=== PATIENT | male | born 1985 | race Caucasian/White ===

== ENCOUNTER 2019-06-22 16:05 | Emergency (ER) | payer OTHER ==
[~2019-06-22] VITALS: Ht 177.8 cm; Wt 77.1 kg
[2019-06-22] MEDS ORDERED: ZYPREXA5 MG PO (18:16)
== END 2019-06-22 18:37 | disposition home or self-care (01) ==
LOC: ED 16:05
DX: R45.6 Violent behavior (principal)
CPT/HCPCS: 99284

== ENCOUNTER 2019-07-29 15:14 | Emergency (ER) | payer OTHER ==
[~2019-07-29] VITALS: Ht 177.8 cm; Wt 77.1 kg
--- OUTSIDE RECORDS SUMMARY | ~2019-07-29 | XMS | Clinical Summary ---
Demographics + + + | Address | [address] | | | [place] [address] | + + + | Home Phone | | + + + | Preferred Language | Unknown | + + + | Marital Status | Single | + + + | Adventist Affiliation | Unknown | + + + | Race | Unknown | + + + | Ethnic Group | Unknown | + + + Author + + + | Author | [facility] (Historical as of | | | 10-21-18) | + + + | Organization | [email or web address] (Historical as of | | | 10-21-18) | + + + | Address | Unknown | + + + | Phone | Unavailable | + + + Support + + +---------+ + | Name | Relationship | Address | Phone | + + +---------+ + | Jessica Mejias | ECON | Unknown | | + + +---------+ + Care Team Providers + +------+ + | Care Stock Analyst Name | Role | Phone | + +------+ + | Toshia Wilder PA-C | PP | | + +------+ + Allergies No Known Allergies Current Medications + + +-------+---------+------+------+-------+ | Prescription | Sig. | Disp. | Refills | Star | End | Statu | | | | | | t | Date | s | | | | | | Date | | | + + +-------+---------+------+------+-------+ | sertraline | Take 25 mg by mouth | | | | | Activ | | (ZOLOFT) 25 MG | daily. | | | | | e | | tablet | | | | | | | + + +-------+---------+------+------+-------+ | cetirizine | Take 10 mg by mouth | | | | | Activ | | (ZYRTEC) 10 MG | daily. | | | | | e | | tablet | | | | | | | + + +-------+---------+------+------+-------+ Active Problems + + + | Problem | Noted Date | + + + | Memory loss | 12/21/2016 | + + + | Migraine without aura and without status migrainosus, not | 12/21/2016 | | intractable | | + + + | Difficulty concentrating | 12/21/2016 | + + + Family History + + +------+ + | Medical History | Relation | Name | Comments | + + +------+ + | Cancer | Father | | | + + +------+ + | Alcohol abuse | Maternal | | | | | Grandfath | | | | | er | | | + + +------+ + | Asthma | Mother | | | + + +------+ + | Diabetes type I | Mother | | | + + +------+ + + +------+ + + | Relation | Name | Status | Comments | + +------+ + + | Father | | Alive | | + +------+ + + | Maternal Grandfather | | | | + +------+ + + | Mother | | Alive | | + +------+ + + Social History + +-------+ +--------+ + | Tobacco Use | Types | Packs/Day | Years | Date | | | | | Used | | + +-------+ +--------+ + | Former Smoker | | | | Quit: 12/21/2014 | + +-------+ +--------+ + + +---+---+ + | Smokeless Tobacco: | | | Quit: | | Former User | | | 06/06/19 | | | | | 18 | + +---+---+ + + + | Tobacco Cessation: Counseling Given: No | + + + + +---------+ + | Alcohol Use | Drinks/We | oz/Week | Comments | | | ek | | | + + +---------+ + | No | | | | + + +---------+ + + + + | Sex Assigned at | Date Recorded | | | | + + + | Not on file | | + + + Last Filed Vital Signs + + + + | Vital Sign | Reading | Time Taken | + + + + | Blood Pressure | 120/72 | 07/06/2017 10:10 AM PDT | + + + + | Pulse | 88 | 07/06/2017 10:10 AM PDT | + + + + | Temperature | - | - | + + + + | Respiratory Rate | - | - | + + + + | Oxygen Saturation | 100% | 07/06/2017 10:10 AM PDT | + + + + | Inhaled Oxygen | - | - | | Concentration | | | + + + + | Weight | 71.7 kg (158 lb) | 07/06/2017 10:10 AM PDT | + + + + | Height | 177.8 cm (5' 10") | 07/06/2017 10:10 AM PDT | + + + + | Body Mass Index | 22.67 | 07/06/2017 10:10 AM PDT | + + + + Plan of Treatment + + + + + | Health Maintenance | Due Date | Last Done | Comments | + + + + + | Vaccine: | | | | | Dtap/Tdap/Td (1 - | 6 | | | | Tdap) | | | | + + + + + | Vaccine: Influenza | | | | | (Season Ended) | 0 | | | + + + + + Results Not on filefrom Last 3 Months Insurance + +--------+ +------+-------+ + | Payer | Benefi | Subscriber | Type | Phone | Address | | | t Plan | ID | | | | | | / | | | | | | | Group | | | | | + +--------+ +------+-------+ + | MEDICAID | [place] | [id number] | | | [address] | | | N | | | | [place] | | | [place] | | | | [phone] | | | [employer] | | | | | + +--------+ +------+-------+ + + +--------+ +--------+ + + | Guarantor Name | Accoun | Relation to | Date | Phone | Billing Address | | | t Type | Patient | of | | | | | | | | | | + +--------+ +--------+ + + | IZABEL WILLIAM | Person | Self | [birth year] 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
--- OUTSIDE RECORDS SUMMARY | ~2019-07-29 | XMS | Encounter Summary ---
Demographics + + + | Address | [address] | | | [place] [address] | + + + | Home Phone | | + + + | Preferred Language | Unknown | + + + | Marital Status | Single | + + + | Restorationism Affiliation | Unknown | + + + | Race | Unknown | + + + | Ethnic Group | Unknown | + + + Author + + + | Author | [facility] | | | and [place] | + + + | Organization | [facility] | | | and [place] | + + + | Address | Unknown | + + + | Phone | Unavailable | + + + Support + + +---------+ + | Name | Relationship | Address | Phone | + + +---------+ + | Jessica Mejias | ECON | Unknown | | + + +---------+ + | Jessica Mejias | ECON | Unknown | | + + +---------+ + Care Team Providers + +------+ + | Care Community Health Educator Name | Role | Phone | + +------+ + PCP | Unavailable | + +------+ + Encounter Details +--------+ + + + + | Date | Type | Department | Care Team | Description | +--------+ + + + + | 01/22/ | Hospital | [facility] | Conversion | Memory loss; | | 2016 | Encounter | [facility] | Transaction, | Migraine without | | | | [address] | Provider Unknown | aura and without | | | | [place], [place] | [phone] | status migrainosus, | | | | [phone] | | not intractable; | | | | [phone] | Keith Rust | Difficulty | | | | | [address] | concentrating | | | | | [address] | | | | | | [place], [place] | | | | | | [address] | | | | | | | | +--------+ + + + + Social History + +-------+ +--------+------+ | Tobacco Use | Types | Packs/Day | Years | Date | | | | | Used | | + +-------+ +--------+------+ | Never Assessed | | | | | + +-------+ +--------+------+ + + + | Sex Assigned at | Date Recorded | | | | + + + | Not on file | | + + + + + + + | Job Start Date | Occupation | Industry | + + + + | Not on file | Not on file | Not on file | + + + + + + + + | Travel History | Travel Start | Travel End | + + + + + + | No recent travel history available. | + + documented as of this encounter Plan of Treatment Not on filedocumented as of this encounter Procedures + +--------+ + + + | Procedure Name | Priori | Date/Time | Associated Diagnosis | Comments | | | ty | | | | + +--------+ + + + | MRI BRAIN WO | Routin | 01/22/2017 | | Results for this | | CONTRAST | e | 1:17 PM | | procedure are in the | | | | PST | | results section. | + +--------+ + + + documented in this encounter Results MRI Brain wo Contrast (01/22/2017 1:17 PM PST) + + | Specimen | + + | | + + + + + | Impressions | Performed At | + + + | 1. Normal MRI appearance of the brain. | | + + + + + + | Narrative | Performed At | + + + | [facility] BRAIN [facility] CONTRAST 01/22/2017 1:17 PM | | | HISTORY: 31 years. Male. Memory loss. Migraine headaches. | | | Difficulty concentrating. TECHNIQUE: Using a 1.5 MRI unit, | | | standard multiplanar noncontrast sequences through the brain were | | | obtained. COMPARISON: None. FINDINGS: No intracranial | | | infarct, hemorrhage, mass, hydrocephalus, or white matter disease is | | | seen. The corpus callosum, midbrain, carmen, medulla, and cerebellum | | | appear normal. No pituitary gland enlargement is found. The orbital | | | structures are normal. No significant paranasal sinus disease is | | | found. No mastoid fluid is noted. | | + + + + + | Procedure Note | + + | Abdirahman, Rad Conversion - 10/19/2018 9:03 AM PDT [facility] | | [id number]/18/2017 1:17 PM HISTORY:31 years. Male. Memory loss. Migraine headaches. | | Difficulty concentrating. TECHNIQUE:Using a 1.5 MRI unit, standard multiplanar | | noncontrast sequences through the brain were obtained. COMPARISON:None. FINDINGS:No | | intracranial infarct, hemorrhage, mass, hydrocephalus, or white matter disease is seen. | | The corpus callosum, midbrain, carmen, medulla, and cerebellum appear normal. No pituitary | | gland enlargement is found. The orbital structures are normal. No significant paranasal | | sinus disease is found. No mastoid fluid is noted. IMPRESSION: 1. Normal MRI | | appearance of the brain. | | PM | |COMPARISON: | |None. | | | |FINDINGS: | |No intracranial infarct, hemorrhage, mass, hydrocephalus, or white matter disease is seen. The corpus callosum, midbrain, carmen, medulla, and cerebellum appear normal. No pituitary gla nd enlargement is found. The orbital structures are normal. No | |significant paranasal sinus disease is found. No mastoid fluid is noted. | | | |IMPRESSION: | |1. Normal MRI appearance of the brain. | | | | | + + documented in this encounter Visit Diagnoses + + | Diagnosis | + + | Memory loss | + + | Migraine without aura and without status migrainosus, not intractable Migraine | | without aura, without mention of intractable migraine without mention of status | | migrainosus | + + | Difficulty concentrating Other general symptoms | + + documented in this encounter"
--- OUTSIDE RECORDS SUMMARY | ~2019-07-29 | XMS | Clinical Summary ---
Demographics + + + | Address | [address] | | | [place] [address] | + + + | Home Phone | | + + + | Preferred Language | Unknown | + + + | Marital Status | Single | + + + | Orthodoxy Affiliation | Unknown | + + + | Race | Unknown | + + + | Ethnic Group | Unknown | + + + Author + + + | Author | [facility] (Historical as of | | | 10-21-18) | + + + | Organization | [facility] (Historical as of | | | 10-21-18) | + + + | Address | Unknown | + + + | Phone | Unavailable | + + + Support + + +---------+ + | Name | Relationship | Address | Phone | + + +---------+ + | eJssica Mejias | ECON | Unknown | | + + +---------+ + Care Team Providers + +------+ + | Care Skip Miner Blasting Name | Role | Phone | + [...] +------+-------+ + | MEDICAID | [employer] | [id number] | | | [address] | | | N | | | | [place] | | | [place] | | | | [phone] | | | [place] | | | | | + +--------+ [...] [birth year]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
--- OUTSIDE RECORDS SUMMARY | ~2019-07-29 | XMS | Clinical Summary ---
Demographics + + + | Address | [address] | | | [place] [address] | + + + | Home Phone | | + + + | Preferred Language | Unknown | + + + | Marital Status | Single | + + + | Islam Affiliation | Unknown | + + + | Race | Unknown | + + + | Ethnic Group | Unknown | + + + Author + + + | Author | [facility] | | | and [place] | + + + | Organization | [facility] | | | and [...] Team Providers + +------+ + | Care Boat Outfitting Supervisor Name | Role | Phone | + +------+ + | Toshia Wilder | PCP | | | PA-C | | | + +------+ + Allergies No Known Allergies Medications + + + +---------+------+------+-------+ | Medication | Sig | Dispensed | Refills | Star | End | Statu | | | | | | t | Date | s | | | | | | Date | | | + + + +---------+------+------+-------+ | sertraline | Take 25 mg by mouth | | 0 | 05/0 | | Activ | | (ZOLOFT) 25 mg | daily. | | | 2/20 | | e | | tablet | | | | 18 | | | + + + +---------+------+------+-------+ | cetirizine | Take 10 mg by mouth | | 0 | 05/0 | | Activ | | (ZYRTEC) 10 mg | daily. | | | 2/20 | | e | | tablet | | | | 18 | | | + + + +---------+------+------+-------+ Active Problems + + + | Problem [...] | | + + +------+ + | Diabetes, IDDM | Mother | | | + + +------+ + + +------+ + + | Relation | Name | Status | Comments | + +------+ + + | Father | | Alive | | + +------+ + + | Father | | | | + +------+ + + | Maternal Grandfather | | | | + +------+ + + | Maternal Grandfather | | | | + +------+ + + | Mother | | Alive | | + +------+ + + | Mother | | | | + +------+ + + Social History + +-------+ +--------+------+ | Tobacco Use | Types | Packs/Day | Years | Date | | | | | Used | | + +-------+ +--------+------+ | Former Smoker | | | | | + +-------+ [...] recent travel history available. | + + Last Filed Vital Signs + + + + + | Vital Sign | Reading | Time Taken | Comments | + + + + + | Blood Pressure | 120/72 | 07/06/2017 10:13 AM | | | | | PDT | | + + + + + | Pulse | 88 | 07/06/2017 10:13 AM | | | | | PDT | | + + + + + | Temperature | - | - | | + + + + + | Respiratory Rate | - | - | | + + + + + | Oxygen Saturation | - | - | | + + + + + | Inhaled Oxygen | - | - | | | Concentration | | | | + + + + + | Weight | 71.7 kg (158 lb) | 07/06/2017 10:13 AM | | | | | PDT | | + + + + + | Height | 177.8 cm (5' 10") | 07/06/2017 10:13 AM | | | | | PDT | | + + + + + | Body Mass Index | 22.67 | 07/06/2017 10:13 AM | | | | | PDT | | + + + + + Plan of Treatment + + + + + | Health Maintenance | Due Date | Last Done | Comments | + + + + + | Vaccine: | | | | | Dtap/Tdap/Td (1 - | 8 | | | | Tdap) | | | | + + + + + | Vaccine: Influenza | | | | | (Season Ended) | 0 | | | + + + + + Results Not on filefrom Last 3 Months
--- OUTSIDE RECORDS SUMMARY | ~2019-07-29 | XMS | Encounter Summary ---
Demographics + + + | Address | [address] | | | [place] [address] | + + + | Home Phone | | + + + | Preferred Language | Unknown | + + + | Marital Status | Single | + + + | Presybeterian Affiliation | Unknown | + + + | Race | Unknown | + + + | Ethnic Group | Unknown | + + + Author + + + | Author | [facility] | | | and [place] | + + + | Organization | [facility] | | | [...] Team Providers + +------+ + | Care Lock Fitter Name | Role | Phone | + +------+ + | Toshia Wilder | PCP | | | PA-C | | | + +------+ + Encounter Details +--------+ + + + + | Date | Type | Department | Care Team | Description | +--------+ + + + + | 07/06/ | Orders Only | [facility] | Conversion | | | 2018 | | [address] | Transaction, | | | | [address] | Provider Unknown | | | | | [place], [place] | [phone] | | | | | [address] | | | | | | [phone] | | | +--------+ + + + [...] Not on filedocumented as of this encounter Visit Diagnoses Not on filedocumented in this encounter"
--- OUTSIDE RECORDS SUMMARY | ~2019-07-29 | XMS | Encounter Summary ---
Demographics + + + | Address | [address] | | | [place] [address] | + + + | Home Phone | | + + + | Preferred Language | Unknown | + + + | Marital Status | Single | + + + | Bahai Affiliation | Unknown | + + + | Race | Unknown | + + + | Ethnic Group | Unknown | + + + Author + + + | Author | [facility] | | | and [place] | + + + | Organization | [facility] | | | [...] Providers + +------+ + | Care Community Education Specialist Name | Role | Phone | + [...] Provider Unknown | | | | | [place], [place] | [phone] | | | | | [phone] | | | | | | [phone] | | | +--------+ + + + [...]
--- OUTSIDE RECORDS SUMMARY | ~2019-07-29 | XMS | Clinical Summary ---
Demographics + + + | Address | [address] | | | [place] [address] | + + + | Home Phone | | + + + | Preferred Language | Unknown | + + + | Marital Status | Single | + + + | Anabaptist Affiliation | Unknown | + + + | Race | Unknown | + + + | Ethnic Group | Unknown | + + + Author + + + | Author | [facility] | | | and [place] | + + + | Organization | [facility] | | [...] Team Providers + +------+ + | Care Mechanical Supervisor Name | Role | Phone | [...]
--- OUTSIDE RECORDS SUMMARY | ~2019-07-29 | XMS | Encounter Summary ---
Demographics + + + | Address | [address] | | | [place] [address] | + + + | Home Phone | | + + + | Preferred Language | Unknown | + + + | Marital Status | Single | + + + | Muslim Affiliation | Unknown | + + + | Race | Unknown | + + + | Ethnic Group | Unknown | + + + Author + + + | Author | [facility] | | | and [place] | + + + | Organization | [facility] | | | and [...] Team Providers + +------+ + | Care Power Distribution Engineer Name | Role | Phone | + +------+ + PCP | Unavailable | + +------+ + Encounter Details +--------+ + + + + | Date | Type | Department | Care Team | Description | +--------+ + + + + | 01/22/ | Hospital | [facility] | Conversion | Memory loss; | | 2016 | Encounter | [facility] | Transaction, | Migraine without | | | | [address] | Provider Unknown | aura and without | | | | [place], [place] | [phone] | status migrainosus, | | | | [phone] | | not intractable; | | | | [phone] | Keith Rust | Difficulty | | | | | MD [address] | concentrating | | | | | [address] | | | | | | D [place], [place] | | | | | | [address] | | | | | | | [...] Conversion - 10/19/2018 9:03 AM PDT [facility] | | [id number]/18/2017 1:17 PM HISTORY:31 years. Male. Memory loss. [...]
[~2019-07-29 15:14] MED LIST: ZYPREXA5 MG PO
[2019-07-29] MEDS ORDERED: OLANZAPINE5 MG PO (15:29)
[2019-07-29] MEDS ORDERED: OLANZAPINE2.5 MG PO (15:29)
== END 2019-07-29 18:33 | disposition home or self-care (01) ==
LOC: ED 15:14
DX: F98.9 Unspecified behavioral and emotional disorders with onset usually occurring in childhood and adolescence (principal); Z87.891 Personal history of nicotine dependence; Z79.899 Other long term (current) drug therapy
CPT/HCPCS: 80053; 80176; 81001; 84443; 85025; 99284; G0480

== ENCOUNTER 2019-08-22 22:11 | Emergency (ER) | payer OTHER ==
[~2019-08-22] VITALS: Ht 177.8 cm; Wt 77.1 kg
[~2019-08-22 22:11] MED LIST changes: +OLANZAPINE2.5 MG PO; +OLANZAPINE5 MG PO
--- OUTSIDE RECORDS SUMMARY | 2019-08-22 22:14 | XMS ---
PreManage Notification: IZABEL PATINO Security Chief Lifestyle Officer Events No recent Security Events currently on file CRITERIA MET - [facility] - 2 Visits in 30 Days CARE PROVIDERS There are no care providers on record at this time. Claudia has no Care Guidelines for this patient. Sanjana VISIT COUNT (12 MO.) [address] [facility] TOTAL 3 NOTE: Visits indicate total known visits. ED/C VISIT TRACKING (12 MO.) 08/22/2019 22:[address] 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
== END 2019-08-23 01:00 | disposition home or self-care (01) ==
LOC: ED 22:11
DX: Z00.00 Encounter for general adult medical examination without abnormal findings (principal); F20.9 Schizophrenia, unspecified; F17.200 Nicotine dependence, unspecified, uncomplicated; Z79.899 Other long term (current) drug therapy
CPT/HCPCS: 80053; 80176; 81001; 84443; 85025; 99283; G0480